=== PATIENT | female | born 1950 | race Caucasian/White ===

== ENCOUNTER 2017-06-25 10:30 | Emergency (ER) | payer SELFPAY ==
[~2017-06-25] VITALS: Ht 157.5 cm; Wt 81.8 kg
[2017-06-25] MEDS ORDERED: ASPI81 PO (10:36)
[2017-06-25] MEDS ORDERED: HYDR25TA84 PO (10:36)
[2017-06-25] MEDS ORDERED: DILT60SR PO (10:36)
[2017-06-25] MEDS ORDERED: DILT120C88 PO (10:36)
[2017-06-25] MEDS ORDERED: HYDR25TA PO (10:36)
[2017-06-25] MEDS ORDERED: LISI-662 PO (10:36)
[2017-06-25] MEDS ORDERED: MECLIZINE HCL 25 MG TABLET PO ONE (11:15)
[2017-06-25] MEDS ORDERED: ACETAMINOPHEN 500 MG TABLET PO ONE (11:30)
[2017-06-25 11:42] LABS: BASOPHILS # (AUTO) 0.03 K/uL (0.00-0.20); BASOPHILS % (AUTO) 0.5 % (0.0-2.0); EOSINOPHILS # (AUTO) 0.07 K/uL (0.00-0.70); EOSINOPHILS % (AUTO) 1.03 % (1.0-6.0); HEMATOCRIT 36.2 % (36-46); HEMOGLOBIN 12.1 g/dL (12.0-16.0); LYMPHOCYTES # (AUTO) 1.3 K/uL (1.0-4.8); LYMPHOCYTES % (AUTO) 17.8 % (22.0-44.0); MEAN CORPUSCULAR HEMOGLOBIN 28.3 pg (26.0-34.0); MEAN CORPUSCULAR HGB CONC 33.6 G/dL (31.0-37.0); MEAN CORPUSCULAR VOLUME 84 fL (80-100); MONOCYTES # (AUTO) 0.3 K/uL (0.1-1.0); MONOCYTES % (AUTO) 4.5 % (2.0-9.0); NEUTROPHILS # (AUTO) 5.5 K/uL (1.8-7.7); NEUTROPHILS % (AUTO) 76.2 % (40.0-70.0); PLATELET COUNT (AUTO) 224 K/uL (150-450); RED BLOOD CELL COUNT(AUTO) 4.29 MIL/uL (4.00-5.20); RED CELL DISTRIBUTION WIDTH 13.3 % (11.5-14.5); WHITE BLOOD COUNT (AUTO) 7.3 K/uL (4.5-11.0)
[2017-06-25 12:01] LABS: ANION GAP 6 mmol/L (8-16); CALCIUM, TOTAL 10.1 mg/dL (8.8-10.5); CARBON DIOXIDE 30 mmol/L (22-29); CHLORIDE 101 mmol/L (98-107); CREATININE 0.75 mg/dL (0.60-1.30); GLOMERULAR FILTR. RATE CALC > 60 mL/min (>60); POTASSIUM 4.6 mmol/L (3.5-5.1); SODIUM SERUM 137 mmol/L (136-145); UREA NITROGEN, BLOOD 25 mg/dL (7-18)
[2017-06-25 12:31] LABS: ALANINE AMINOTRANSFERASE 21 U/L (12-78); ASPARTATE AMINOTRANSFERASE 19 U/L (15-37); BILIRUBIN,TOTAL 0.4 mg/dL (0.1-1.0); CREATINE KINASE MB 1.5 ng/mL (0-5); CREATINE KINASE, TOTAL 162 U/L (26-192); TOTAL PROTEIN, SERUM 7.9 g/dL (6.4-8.2)
[2017-06-25 12:51] VITALS: BP 176/80
== END 2017-06-25 13:39 | disposition home or self-care (01) ==
LOC: EMS 10:32
DX: S09.90XA Unspecified injury of head, initial encounter (principal); R42 Dizziness and giddiness; M54.5 Low back pain; I10 Essential (primary) hypertension; W19.XXXA Unspecified fall, initial encounter; Y93.89 Activity, other specified; Y92.89 Other specified places as the place of occurrence of the external cause; Y99.8 Other external cause status
CPT/HCPCS: 70450; 93005; 99285

== ENCOUNTER 2021-12-30 14:04 | Emergency (ER) | payer MEDICAID ==
[~2021-12-30] VITALS: Ht 147.3 cm; Wt 75.0 kg
[~2021-12-30 14:04] MED LIST: ASPI-1450 PO; DILT-94 PO; DILT60SR PO; HYDR-4870 PO; HYDR25TA84 PO; LISI-894 PO
[2021-12-30 15:56] LABS: GLUCOMETER DEV NAME(LOC) ERT.5; GLUCOSE,POINT OF CARE 99 MG/DL (70-110)
[2021-12-30 15:59] LABS: BASOPHILS % (AUTO) 0.3 % (0.0-2.0); EOSINOPHILS % (AUTO) 0.9 % (1.0-6.0); HEMATOCRIT 34.1 % (36-46); HEMOGLOBIN 11.6 g/dL (12.0-16.0); LYMPHOCYTES # (AUTO) 1.2 K/uL (1.0-4.8); LYMPHOCYTES % (AUTO) 15.5 % (22.0-44.0); MEAN CORPUSCULAR HEMOGLOBIN 28.1 pg (26.0-34.0); MEAN CORPUSCULAR HGB CONC 33.8 G/dL (31.0-37.0); MEAN CORPUSCULAR VOLUME 83 fL (80-100); MONOCYTES # (AUTO) 0.4 K/uL (0.1-1.0); MONOCYTES % (AUTO) 4.9 % (2.0-9.0); NEUTROPHILS # (AUTO) 6.2 K/uL (1.8-7.7); NEUTROPHILS % (AUTO) 78.4 % (40.0-70.0); PLATELET COUNT (AUTO) 219 K/uL (150-450); RED BLOOD CELL COUNT(AUTO) 4.12 MIL/uL (4.00-5.20); RED CELL DISTRIBUTION WIDTH 13.4 % (11.5-14.5)
[2021-12-30 16:08] LABS: ANION GAP 6 mmol/L (8-16); CALCIUM, TOTAL 9.9 mg/dL (8.8-10.5); CARBON DIOXIDE 28 mmol/L (22-29); CHLORIDE 105 mmol/L (98-107); CREATININE 0.85 mg/dL (0.60-1.30); GLOMERULAR FILTR. RATE CALC > 60 mL/min (>60); GLUCOSE,RANDOM 110 mg/dL (70-110); POTASSIUM 4.5 mmol/L (3.5-5.1); SODIUM SERUM 139 mmol/L (136-145); UREA NITROGEN, BLOOD 31 mg/dL (7-18)
[2021-12-30 16:39] VITALS: BP 164/85
== END 2021-12-30 17:16 | disposition home or self-care (01) ==
LOC: EMS 14:04
DX: R55 Syncope and collapse (principal); I10 Essential (primary) hypertension
CPT/HCPCS: 80048; 82962; 85025; 93005; 99284